=== PATIENT | female | born 1940 | race Caucasian/White ===

== ENCOUNTER → 2017-09-26 | Outpatient (CLI) | payer OTHER, MEDICARE ==
[~2017-09-26] VITALS: Ht 152.4 cm; Wt 65.8 kg
[~2017-09-26] MED LIST: ALIGN4 MG PO; ASPIRIN EC81 M1 PO; CALCIUM 500 +1 EAC5 PO; CARISOPRODOL 3350 MG PO; CELEBREX 200 M200 M1 PO; COUMADIN 2 MG TA2 M1 PO; COUMADIN 5 MG TA5 M1 PO; CRESTOR10 MG PO; ENDOCET 5-3251 EACH PO; FLORASTOR PO; FLORASTOR250 MG PO; HYDROCODONE-AP1 EAC6 PO; LISINOPRIL40 MG PO; MOBIC7.5 MG PO; MULTI VITAMIN1 EACH PO; NOLVADEX20 MG PO; PERCOCET 10-321 EACH PO; RETIN-A20 G1 TOP; RETIN-A45 G2; SENNA PO; SENNA8.6 MG PO; SOMA250 MG PO; STOOL SOFTENER100 MG PO; STOOL SOFTENER50 MG PO; TRETINOIN 0.05%60 GM TOP; ZANAFLEX4 MG PO; ZANTAC 150MG T150 M1 PO; ZANTAC 7575 MG PO
--- NOTE | ~2017-09-26 | P ---
[facility] [place] [address] PROCEDURE REPORT Name: FADY BERTRAND Room #: REG [facility]#: [id number] Admission: 09/26/17 Attend Phys: Devin Mendez MD Discharge: Date of : 38 Report #: [id number] THIS REPORT FOR: //name// CC: Devin Muller MD BRIEF HISTORY: The patient is a 76-year-old woman who had a 1-cm flat polyp removed from the cecum in a piecemeal fashion last year. She presents for followup colonoscopy to ensure complete removal of the flat polyp. PREOPERATIVE DIAGNOSIS: History of polyps to evaluate for adequate removal. POSTOPERATIVE DIAGNOSES: 1. Polyps times 2, mid transverse colon. 2. Moderate sigmoid diverticulosis coli. 3. Small internal hemorrhoids. 4. Moderate melanosis coli. MEDICATIONS: Deep sedation with propofol per anesthesia. SPECIMENS: Polyps times 2 mid transverse colon. ESTIMATED BLOOD LOSS: 3 mL. PROCEDURE: Colonoscopy to cecum and terminal ileum with snare polypectomy. FINDINGS: Prior to propofol sedation, the procedure of colonoscopy discussed with the patient as well as potential risks, benefits, and complications. She indicates she understands and desires to proceed. With the patient in left lateral decubitus position, digital examination was completed, which revealed no abnormalities. Subsequently, the [employer] video colonoscope was introduced into the rectum and advanced under direct vision to the cecum. Done with some difficulty as she had a tortuous redundant colon. The cecum was identified by the ileocecal valve and the appendiceal orifice. I was able to visualize the distal segment of terminal ileum, which was inspected and noted to be unremarkable. At that point, the scope was slowly withdrawn and careful circumferential views obtained including retroflexing the scope in the ascending colon. Upon slow withdrawal of the scope, the prep was noted to be good. The mucosa was within normal limits, normal vascular pattern, and normal light reflex. As we withdrew the scope, she was noted have a pattern of moderate melanosis throughout the entire colon. The previous polypectomy site in the cecum was identified, it was completely healed and there was no endoscopic evidence of residual polyp tissue. As we withdrew the scope, the mucosa was inspected. Other than the melanosis, no other mucosal abnormalities were noted except for 2 polyps in the mid transverse colon. One was an [facility] [address] [place] [address] PROCEDURE REPORT Name: FADY BERTRAND Room #: REG [facility]#: [id number] Admission: 09/26/17 Attend Phys: Devin Mendez MD Discharge: Date of : 38 Report #: [id number] elliptical shaped flat polyp in about 6 mm in greatest dimension, removed by cold snare polypectomy. The other was a diminutive polyp removed with biopsy forceps. The scope was further withdrawn and no additional polyps were seen. Other than melanosis, no other abnormalities were identified. Scope was withdrawn in the rectum, small internal hemorrhoids were seen. Scope was withdrawn. The patient tolerated the procedure well. CONDITION OF THE PATIENT UPON DISCHARGE: Following procedure, the patient drowsy, aroused, conversant and will be discharged to home when fully ambulatory. INSTRUCTIONS TO THE PATIENT AND FAMILY AT THE TIME OF DISCHARGE: The previous polypectomy site looks good without evidence of residual polyp tissue. We will follow up on the path of the other polyps removed today. In view of the fact that the polyp in the cecum was greater than 1 cm, which represented advance adenoma, suggest she return in 3 years for followup colon exam. As for the melanosis, suggest she avoid stimulatory laxatives. If constipation is a problem, she will use fiber and/or MiraLax. Last colonoscopy was less than a year due to the piecemeal removal of a polyp. Withdrawal time from the cecum was 15 minutes 56 seconds. <ELECTRONICALLY SIGNED> By: Devin Mendez MD 09/27/17 1533 [id number] Devin Mendez MD /nt
--- NOTE | ~2017-09-26 | S ---
[facility] [place] [address] SURGICAL PATH RPT PROCEDURE Name: FADY RICHARDS Room #: REG [facility]Daily.#: [id number] Admission: 09/26/17 Date of : 38 Discharge: Report #: [id number] Path Case #: [id number] PATHOLOGY REPORT COLLECTION DATE: 09/26/2017 RECEIVED DATE: 09/26/2017 SUBMITTING PHYS: Dr. Devin Mendez OTHER PHYS: Dr. Vinay Muller SPECIMEN(S) RECEIVED: A.Transverse colon polyp * * * * * * * * * * * * FINAL DIAGNOSIS: Polyp, transverse colon polyp x2, endoscopic biopsy: - All fragments showing findings compatible with a hyperplastic polyp. - Negative for dysplasia or malignancy. (IUV:mml; 09/27/2017) PATHOLOGIST: Lizz Carrasco M.D. REPORT ELECTRONICALLY SIGNED BY: Lizz Carrasco M.D. DATE/TIME: 09/27/2017 13:11 * * * * * * * * * * * * GROSS PATHOLOGY: A. Received in formalin labeled "Fady Richards, transverse colon polyp 2" is a 1.5 x 0.5 x 0.1 cm aggregate of villaseñor-brown soft tissue. The specimen is submitted in cassette A1. ([facility]; 09/26/2017) CLINICAL HISTORY: History of colon polyps. INITIAL CPT CODE(S): A; 16006 Professional services performed by [facility] at [facility] [address], [place] [address] Technical services performed by [facility] at [address] [place] [address], [facility] [address], [place] [address]. [facility] [address] [place] [address] SURGICAL PATH RPT PROCEDURE Name: FADY RICHARDS Room #: REG [facility] Darion.#: [id number] Admission: 09/26/17 Date of : 38 Discharge: Report #: [id number] Path Case #: [id number] [facility] [address] [address] PHONE: [phone] DIRECTOR: Rashel Jackson M.D. * * * END OF REPORT * * *
== END | disposition home or self-care (01) ==
LOC: GI 07:47
DX: Z09 Encounter for follow-up examination after completed treatment for conditions other than malignant neoplasm (principal); Z86.010 Personal history of colon polyps; K57.30 Diverticulosis of large intestine without perforation or abscess without bleeding; K64.8 Other hemorrhoids; K63.89 Other specified diseases of intestine; Z87.891 Personal history of nicotine dependence; I10 Essential (primary) hypertension; E78.5 Hyperlipidemia, unspecified; K21.9 Gastro-esophageal reflux disease without esophagitis
CPT/HCPCS: 62110; 62900